=== PATIENT | male | born 1965 | race Caucasian/White ===

== ENCOUNTER 2021-08-30 20:52 | Emergency (ER) | payer OTHER ==
[2021-08-30 22:25] LABS: BASOPHIL 0.7 % (0-2); EOSINOPHIL 1.6 % (0-5); HCT 39.8 % (42.0-52.0); HGB 13.4 g/dl (13.2-18.0); LYMPHOCYTE 33.8 % (15-48); MCH 30.2 pg (25.0-31.0); MCHC 33.7 g/dL (32.0-36.0); MCV 89.8 fL (78.0-100.0); MONOCYTE 7.1 % (0-12); NEUTROPHIL 56.5 % (41-80); NRBC 0; PLT 428 K/uL (150-400); RBC 4.43 M/uL (4.70-6.00); WBC 9.1 K/uL (4.0-10.5)
[2021-08-30 22:29] LABS: PROTHROMBIN TIME 12.6 SECONDS (11.8-13.4)
[2021-08-30 22:30] LABS: PTT 29.5 SECONDS (24.4-34.7)
[2021-08-30 22:31] LABS: D-DIMER < 0.27 ug/mLFEU (0.00-0.41)
[2021-08-30 22:37] LABS: ALBUMIN 4.1 g/dL (3.4-5.0); BILIRUBIN - TOTAL 0.3 mg/dL (0.2-1.0); BUN/CREAT RATIO (CALC) 16.3 RATIO; CREATININE 0.92 mg/dL (0.67-1.17); GLOBULIN (CALCULATION) 2.9 g/dL; POTASSIUM 3.7 mmol/L (3.5-5.1)
[2021-08-30 22:50] LABS: CORONAVIRUS 2019 SARS-COV-2 NEGATIVE (NEGATIVE); INFLUENZA A NAA NEGATIVE (NEGATIVE)
[2021-08-30 23:18] LABS: AMPHETAMINES NEGATIVE (NEGATIVE); BARBITURATES NEGATIVE (NEGATIVE); ECSTASY (MDMA) NEGATIVE (NEGATIVE); MARIJUANA (THC) NEGATIVE (NEGATIVE); METHADONE NEGATIVE (NEGATIVE); OPIATES NEGATIVE (NEGATIVE); OXYCODONE NEGATIVE (NEGATIVE)
[2021-08-30 23:23] LABS: BILIRUBIN NEGATIVE (NEGATIVE); BLOOD NEGATIVE Ery/uL (NEGATIVE); CLARITY CLEAR (CLEAR); COLOR YELLOW (YELLOW); GLUCOSE (U) NORMAL (NORMAL); LEUKOCYTES NEGATIVE Leu/uL (NEGATIVE); NITRITE NEGATIVE (NEGATIVE); PROTEIN NEGATIVE (NEGATIVE); SPECIFIC GRAVITY 1.015 (1.001-1.030); UROBILINOGEN 0.2 mg/dL (0.2-1.0); pH 5.5 (5.0-9.0)
== END 2021-08-31 02:00 | disposition home or self-care (01) ==
LOC: FER 20:52
PROVIDERS: Nurse Practitioner Family
DX: H53.8 Other visual disturbances (principal); F17.210 Nicotine dependence, cigarettes, uncomplicated; Z20.822 Contact with and (suspected) exposure to COVID-19
CPT/HCPCS: 36415; 70450; 71046; 80053; 80305; 81003; 84484; 85025; 85379; 85610; 85730; 93005; J7030; U0002